=== PATIENT | male | born 1975 | race African-American/Black ===

== ENCOUNTER 2020-01-22 20:07 | Emergency (ER) | payer MEDICAID, SELFPAY ==
[2020-01-22 20:24] VITALS: BP 144/92; PULSE 90; RESP 17; TEMP 36.9; O2SAT 99; BMI 38.0
--- NOTE | 2020-01-22 20:31 | HMH.EDUTC ---
[facility] [place] Clinical Impression: Plantar fasciitis, bilateral Disposition: Home, Self-Care Condition on Discharge: Good Instructions: Plantar Fasciitis, DI for Plantar Fasciitis Additional Instructions: RICE as advised in [facility] Rest, ice, NSAIDs, heel/arch support inserts Follow up with Podiatry as advised in the [facility] Use foot/arch supports as advised in [facility] these may be purchased over the counter at most drug stores Return if needed Straight to ER if any life threatening symptoms Referrals: Risa Garcia [Primary Care Provider] - Elizabeth Fisher DPM [Staff Physician] - Forms: Work/School Release Time of Disposition: 20:51 Medical Decision Making - Julian Inquiry Pt receiving controlled substance: No Julian was queried for this patient: No Vital Signs: 01/22/20 20:24 Temperature 98.4 F Temperature Source Oral Pulse Rate [Right Brachial] 90 Respiratory Rate 17 Blood Pressure [Right Arm] 144/92 H Blood Pressure Mean [Right Arm] 109 Blood Pressure Source [Right Arm] Automatic Cuff Blood Pressure Position [Right Arm] Sitting 02 Sat by Pulse Oximetry 99 Orders (Tests/Meds): ED MEDICATIONS Discontinued Medications Generic Name Dose Route Start Last Admin Trade Name Teoq PRN Reason Stop Dose Admin Methylprednisolone Sodium Succinate 125 mg 01/22/20 20:34 Solu-Medrol 125mg/2ml Vial IM 01/22/20 20:35 ONCE ONE [facility] [place] - General Stated complaint: Feet problems Time Seen by Provider: 01/22/20 20:31 Mode of Arrival: Family Vehicle Source of Information: Patient Limitations: No Limitations Description of Symptoms (Recalled from Triage Doc. by RN): Pt states he has had planters fascitis for years and started with severe pain yesterday HEENT Symptoms (Recalled from RN notes): No Resp Symptoms (Recalled from RN notes): No Skin Symptoms (Recalled from RN notes): No MS Symptoms (Recalled from RN notes): Yes Functional Status (Recalled from RN notes): wnl - History of Present Illness Provider Complaint: Patient states that he has a history of plantar fasciitis for years States that he recently moved here States that he has been working on his feet alot and has been having more pain for the last couple of days States that before when this happened they would give him a steriod shot and it would help some until he can get in to see a lead driver - Related Data Allergies Allergy/AdvReac Type Severity Reaction Status Date / Time No Known Allergies Allergy Verified 11/22/19 11:46 - Worker's Comp Is this a Worker's Comp case?: No [facility] History - Hepatitis A Screen Drug use history?: No High risk sexual behaviors?: No History of sexually transmitted infection?: No Currently employed?: No Childcare worker?: No Do you have indoor plumbing?: Yes Do you have electricity?: Yes Attestation statement:: This patient has been screened for Hepatitis A risk factors. I have reviewed the patient's past medical history: Yes - Social History Educational Level: Attended College Smoking Status: Never smoker Alcohol Intake: never Occupational Status: employed Housing: house Household Members: family ROS Obtained: Yes All systems reviewed & no additional complaints, Yes Systems reviewed as appropriate & no additional complaints - Allergic/Immunologic Comments: Pain in both feet with history of planter fasciitis denies injury reports pain has got worse over the last few days and has been trying to get into podiatry Physical Exam - General General appearance: alert, in no apparent distress - Respiratory Respiratory exam: Present: normal lung sounds bilaterally. Absent: respiratory distress - Cardiovascular Cardiovascular exam: Present: regular rate, normal rhythm. Absent: JVD - Abdominal Exam Abdominal exam: Present: soft, normal bowel sounds. Absent: distention, tenderness, guarding - Expanded Lower Extremity Exam bilater Gait: observed and normal Comment: Jennifer
[2020-01-22 21:16] VITALS: BP 142/70; PULSE 85; RESP 16; TEMP 36.7; O2SAT 98
== END 2020-01-22 21:17 | disposition home or self-care (01) ==
PROVIDERS: Emergency Provider Nurse Practitioner; PCP Family Medicine
DX: M72.2 Plantar fascial fibromatosis (principal)
CPT/HCPCS: 96372; 99201